=== PATIENT | female | born 1980 | race Caucasian/White ===

== ENCOUNTER 2017-02-28 23:30 | Emergency (ER) | payer MEDICAID ==
[~2017-02-28] VITALS: Ht 162.6 cm; Wt 78.9 kg
[2017-02-28 23:34] VITALS: BP 114/59
--- NOTE | 2017-03-01 00:10 | NUR ---
PATIENT TO BED 7 AT THIS TIME.
--- NOTE | 2017-03-01 00:19 | NUR ---
PATIENT PRESENTS TO ED WITH LOWER ABD PAIN, FOR 4 DAYS . DENIES N/V/D; SKIN IS PINK/WARM/DRY; AAOX4 WITH EVEN AND STEADY GAIT; LUNGS CLEAR BL; HR EVEN AND REGULAR; PT DENIES ANY FEVER, CP, SOB, OR COUGH AT THIS TIME; PATIENT STATES PAIN OF 9/10 AT THIS TIME; VSS; PATIENT POSITIONED FOR COMFORT; HOB ELEVATED; BEDRAILS UP X2; BED DOWN.
[2017-03-01] MEDS ORDERED: KETOROLAC 60 MG/2 ML VIAL IM ONE (00:30)
--- NOTE | 2017-03-01 00:36 | NUR ---
US AT BEDSIDE
--- NOTE | 2017-03-01 01:05 | NUR ---
DR. FREITAS AT BEDSIDE
[2017-03-01 01:15] VITALS: BP 107/75
== END 2017-03-01 01:15 | disposition home or self-care (01) ==
LOC: MED 23:30
DX: R10.30 Lower abdominal pain, unspecified (principal); R03.0 Elevated blood-pressure reading, without diagnosis of hypertension
CPT/HCPCS: 76856; 81002; 81025; 96372; 99284; J1885; Q0092